=== PATIENT | female | born 1995 | race Caucasian/White ===

== ENCOUNTER 2017-01-09 13:43 | Observation (INO) | payer MEDICAID ==
--- NOTE | 2017-01-09 19:17 | SOAPPROG ---
SOAP Progress Note Assessment/Plan: Assessment: G1 at 25w6d care at [facility] in [facility] with Dr. Lai Abd pain: No e/o abruption, labor including no contractions, cervix long /closed Urine dip completed, no signs of infection Denies vaginitis symptoms status reassuring Most consistent with round ligament pain Plan: Continue to monitor symptoms and follow-up with her primary provider if does not improve Given abdominal binder, also may purchase SI joint stabilizer/maternity belt Routine precautions discussed 01/09/17 19:19 01/09/17 19:24 Subjective: HPI: Pt is a 21 yo G1 here at 25w6d by 1st trimester US (per pt) with an SAUD of , here for abdominal pain x 2 days. Pt states she gets [facility] at [facility] with Dr. Lai. She states the has been uncomplicated and she recently had a normal anatomy US. She tried to call her providers about this condition but states she was unable to get ahold of them. She is planning to deliver at [facility]. Bilateral lower abdominal pain for 2 days, 2/10, sharp, intermittent. No dysuria. No VB. No cramping or contractions. Active baby. Last intercourse 2 days ago. No abnormal discharge. PMH: None PSH: None Objective: VS reviewed, WNL Gen: alert, awake, NAD, AOx4 Resp: unlabored CV: regular rate Abd: gravid, c/w stated dates, soft, nontender Ext: no edema TVUS: cervix long/closed, measuring 2.96-3.07 cm SVE: cervix long/closed/posterior FHR baseline 130, mod purvi, + 10x10 accels, no decels [place]: no contractions ICD10 Worksheet Patient Problems: Problems Problem Status Onset Pain of round ligament affecting , antepartum Acute - ICD10 Problem Qualifiers (1) Pain of round ligament affecting , antepartum
--- NOTE | 2017-01-12 08:55 | GPROG ---
[f rep st] PROGRESS NOTE DISCHARGE ORDER TIME OF DISCHARGE: 1449. DISCHARGE LOCATION: [facility] Labor and Delivery. /[id number]/MODL
== END 2017-01-09 14:55 | disposition home or self-care (01) ==
LOC: EDBD 13:43 → FLD 13:43
PROVIDERS: ADMIT Obstetrics & Gynecology; ATTEND Obstetrics & Gynecology
DX: O26.892 Other specified pregnancy related conditions, second trimester (principal); R10.9 Unspecified abdominal pain; Z3A.25 25 weeks gestation of pregnancy
CPT/HCPCS: G0378